=== PATIENT | male | born 1955 | race Caucasian/White ===

== ENCOUNTER 2021-06-29 06:03 | Observation (INO) ==
[~2021-06-29 06:03] MED LIST: DEXAMETHASONE 4 MG/1 ML VIAL ONE; DEXMEDETOMIDINE 200 MCG/2 ML VIAL ONE; LIDOCAINE 1% 5 ML VIAL ONE; ROPIVACAINE 0.5% 30 ML VIAL ONE
[2021-06-29] MEDS ORDERED: FAMOTIDINE 20 MG TABLET ONE (06:09)
[2021-06-29] MEDS ORDERED: GABAPENTIN 400 MG CAPSULE ONE (06:09)
[2021-06-29] MEDS ORDERED: ACETAMINOPHEN 500 MG TABLET ONE (06:09)
[2021-06-29] MEDS ORDERED: BUPIVACAINE SPINAL 0.75% 2 ML AMP SPINAL ONE (06:15)
[2021-06-29] MEDS: LACTATED RINGERS 1,000 ML IV SCH ×2 (06:35→08:40)
[2021-06-29 06:45] LABS: PT Patient Result 10.9 SECS (10.5-12.0); Partial Thromboplastin Time 26.9 SECS (23.8-32.1)
[2021-06-29] MEDS ORDERED: diphenhydrAMINE CAP 25 MG CAPSULE PO PRN (06:56)
[2021-06-29] MEDS ORDERED: MAGNESIUM HYDROXIDE SUSP 30 ML UDCUP PO PRN (06:56)
[2021-06-29] MEDS ORDERED: TEMAZEPAM 7.5 MG CAPSULE PO PRN (06:56)
[2021-06-29] MEDS ORDERED: LACTULOSE 20 GM/30 ML UDCUP PO PRN (06:56)
[2021-06-29] MEDS ORDERED: PROMETHAZINE 25 MG/1 ML VIAL IM PRN (06:56)
[2021-06-29] MEDS ORDERED: BISACODYL 10 MG SUPP RECTAL PRN (06:56)
[2021-06-29] MEDS ORDERED: ONDANSETRON 4 MG/2 ML VIAL IV PRN (06:56)
[2021-06-29] MEDS ORDERED: MORPHINE 2 MG/1 ML SYRINGE IV PRN ×2 (06:56→07:03)
[2021-06-29] MEDS ORDERED: VANCOMYCIN INJ 1,000 MG in SODIUM CHLORIDE 0.9% 250 ML IV ONE (07:00)
[2021-06-29] MEDS ORDERED: TRANEXAMIC ACID 1,000 MG/10 ML VIAL ONE (07:20)
[2021-06-29] MEDS ORDERED: MIDAZOLAM 2 MG/2 ML VIAL ONE (07:21)
[2021-06-29] MEDS ORDERED: GABAPENTIN 400 MG CAPSULE PO ONE (07:21)
[2021-06-29] MEDS ORDERED: ACETAMINOPHEN 500 MG TABLET PO ONE (07:21)
[2021-06-29] MEDS ORDERED: FAMOTIDINE 20 MG TABLET PO ONE (07:21)
[2021-06-29] MEDS: Fluticasone-Umeclidin-Vilanter [Trelegy Ellipta] 100-62.5-25 mcg INH SCH (10:00)
[2021-06-29] MEDS: NICOTINE 21 MG/24 HR PATCH TRANSDERM SCH (10:33)
[2021-06-29] MEDS ORDERED: NICOTINE 21 MG/24 HR PATCH TRANSDERM SCH (11:00)
[2021-06-29] MEDS: ceFAZolin 2,000 MG/50 ML DUPLEX IV SCH ×2 (13:12→22:09)
[2021-06-29] MEDS ORDERED: GLUCAGON 1 MG VIAL IM PRN (14:28)
[2021-06-29] MEDS ORDERED: DEXTROSE 10% 250 ML BAG IV PRN (14:28)
[2021-06-29] MEDS: INSULIN LISPRO 100 UNIT/ML SUBCUT SCH ×2 (16:25→22:10)
[2021-06-29] MEDS: FONDAPARINUX 2.5 MG/0.5 ML SYRINGE SUBCUT SCH (22:08)
[2021-06-29] MEDS: DOCUSATE SODIUM 100 MG CAPSULE PO SCH (22:08)
[2021-06-30 05:57] LABS: Basophils % 0.3 % (0.0-0.8); Eosinophils % 0.2 % (0.00-10.9); Hematocrit 40.6 VOL% (42.0-52.0); Hemoglobin 13.6 GM/DL (14.0-18.0); Immature Granulocytes % 0.6 %; Immature Granulocytes Absolute 0.07 #; Lymphocytes % 16.2 % (21.2-54.2); Mean Corpuscular HGB Conc 33.5 GM/DL (32-36); Mean Corpuscular Volume 100.5 FL (87-102); Mean Platelet Volume 11.2 FL (9.6-12.0); Monocytes % 11.1 % (1.7-12.7); Neutrophils % 71.6 % (38.7-73.9); Platelet Count 169 T/CUMM (130-400); Red Blood Count 4.04 MC/CUMM (3.8-5.5); Red Cell Distribution Width 12.9 % (9.3-17.3); White Blood Count 12.4 T/CUMM (4-12)
[2021-06-30 06:02] LABS: Calcium 8.3 MG/DL (8.5-10.1); Osmolality,Calculated 274.1 MOS/KG (273-304)
[2021-06-30] MEDS ORDERED: ACETAMINOPHEN 325 MG TABLET PO PRN (06:57)
[2021-06-30] MEDS: INSULIN LISPRO 100 UNIT/ML SUBCUT SCH ×4 (08:17→21:37)
[2021-06-30] MEDS: DOCUSATE SODIUM 100 MG CAPSULE PO SCH ×2 (08:18→21:37)
[2021-06-30] MEDS: Fluticasone-Umeclidin-Vilanter [Trelegy Ellipta] 100-62.5-25 mcg INH SCH (09:43)
[2021-06-30] MEDS: NICOTINE 21 MG/24 HR PATCH TRANSDERM SCH (09:43)
[2021-06-30] MEDS ORDERED: MORPHINE 4 MG/1 ML VIAL IV PRN ×2 (16:00)
[2021-06-30] MEDS: FONDAPARINUX 2.5 MG/0.5 ML SYRINGE SUBCUT SCH (21:38)
[2021-07-01] MEDS: INSULIN LISPRO 100 UNIT/ML SUBCUT SCH ×4 (08:21→22:55)
[2021-07-01] MEDS: DOCUSATE SODIUM 100 MG CAPSULE PO SCH ×2 (08:21→21:24)
[2021-07-01] MEDS: Fluticasone-Umeclidin-Vilanter [Trelegy Ellipta] 100-62.5-25 mcg INH SCH (09:59)
[2021-07-01] MEDS: NICOTINE 21 MG/24 HR PATCH TRANSDERM SCH (09:59)
[2021-07-01] MEDS: FONDAPARINUX 2.5 MG/0.5 ML SYRINGE SUBCUT SCH (21:24)
[2021-07-02 07:57] VITALS: BP 122/61
[2021-07-02] MEDS: INSULIN LISPRO 100 UNIT/ML SUBCUT SCH (09:15)
[2021-07-02] MEDS: DOCUSATE SODIUM 100 MG CAPSULE PO SCH (09:15)
[2021-07-02] MEDS: Fluticasone-Umeclidin-Vilanter [Trelegy Ellipta] 100-62.5-25 mcg INH SCH (09:16)
[2021-07-02] MEDS: NICOTINE 21 MG/24 HR PATCH TRANSDERM SCH (09:16)
== END 2021-07-02 10:55 | disposition swing bed (61) ==
LOC: N.3E 06:03 → N.OR 06:03 → N.SDSINP 06:04 → N.3E 06:56
PROVIDERS: ADMIT Orthopaedic Surgery; ATTEND Orthopaedic Surgery